=== PATIENT | female | born 1980 | race Caucasian/White ===

== ENCOUNTER 2016-10-10 14:04 | Emergency (ER) | payer MEDICAID, OTHER ==
[~2016-10-10] VITALS: Ht 167.6 cm; Wt 80.0 kg
[~2016-10-10 14:04] MED LIST: ALPR0.25 PO; FIORIC PO; IBUP-232 PO; MEGE40SU PO
[2016-10-10 14:14] VITALS: BP 107/57; PULSE 99; RESP 16; TEMP 99.3; O2SAT 99
[2016-10-10] MEDS ORDERED: AMOX500T PO (15:19)
--- NOTE | 2016-10-10 15:19 | PD ---
HPI Chief Complaint: ENT Complaint Time Seen by Provider: 15:00 Travel History International Travel<30 days: No Contact w/Intl Traveler<30days: No Traveled to known affect area: No History of Present Illness HPI 36-year-old female presents emergency department for evaluation of right ear pain times one day. Patient denies fever or chills, headache, neck pain. She reports the pain is constant, nonradiating. No aggravating or alleviating factors. Pain scale 5/10. PFSH Past Medical History Anxiety: Yes Depression: Yes Insomnia: Yes Immunizations Current: Yes Migraines: Yes Influenza Vaccination: No ?: Not : 4 Para: 4 Tubal Ligation: Yes (03/31/08) Past Surgical History Section: Yes (3 ) Gynecologic Surgery: Yes (bilateral tubal ligation 03/31/2008) Hysterectomy: No (STATES NEEDS ONE FOR ABNORMAL BLEEDING-TAKING MEGESTROL) Other Surgery: Yes (HERNIA REPAIR/LAPAROSCOPY) Social History Alcohol Use: Yes (couple times per month) Tobacco Use: Yes (1/2 ppd) Substance Use: No Allergies-Medications (Allergen,Severity, Reaction): Uncoded Allergies: UNKNOWN ANTIBIOTIC (Allergy, Severe, NAUSEA/VOMITING., 01/06/15) UNKNOWN "ANTIBIOTIC FOR A YEAST INFECTION" Reported Meds & Prescriptions Reported Meds & Active Scripts Active No Active Prescriptions or Reported Medications Review of Systems Except as stated in HPI: all other systems reviewed are Neg General / Constitutional: No: Fever Physical Exam Narrative GENERAL: Alert, well-appearing female no acute distress. Patient sleeping on stretcher. SKIN: Focused skin assessment warm/dry. HEAD: Atraumatic. Normocephalic. EYES: Pupils equal and round. No scleral icterus. No injection or drainage. ENT: No nasal bleeding or discharge. Mucous membranes pink and moist. Right TM erythema. No canal swelling or exudate. No mastoid tenderness. NECK: Trachea midline. No JVD. CARDIOVASCULAR: Regular rate and rhythm. No murmur appreciated. RESPIRATORY: No accessory muscle use. Clear to auscultation. Breath sounds equal bilaterally. GASTROINTESTINAL: Abdomen soft, non-tender, nondistended. Hepatic and splenic margins not palpable. MUSCULOSKELETAL: No obvious deformities. No clubbing. No cyanosis. No edema. NEUROLOGICAL: Awake and alert. No obvious cranial nerve deficits. Motor grossly within normal limits. Normal speech. Data Data Last Documented VS Vital Signs Date Time Temp Pulse Resp B/P Pulse Ox O2 Delivery O2 Flow Rate FiO2 10/10/16 14:14 99.3 99 16 107/57 99 MDM Medical Decision Making Medical Screen Exam Complete: Yes Emergency Medical Condition: Yes Differential Diagnosis Otitis media, otitis externa, URI Narrative Course 36-year-old female chief complaint of right ear pain times one day. Patient denies fever or chills. On exam she has right TM erythema with loss of landmarks. No perforation. No canal swelling or exudate. No mastoid tenderness. Patient be treated for AOM with amoxicillin. Diagnosis Primary Impression: Otitis media Qualified Code: H66.91 - Right otitis media, unspecified chronicity, unspecified otitis media type Referrals: Primary Care Physician Additional Instructions: Take the antibiotics as prescribed. Take [id number] Motrin 235666 milligrams by mouth every 6-8 hours as needed for pain. Follow-up with her primary care doctor. Return to emergency department if he developed new or worsening symptoms. Scripts Amoxicillin 500 Mg Qpw280 Mg PO TID #30 TAB Prov:Osiris Hansen 10/10/16 Disposition: 01 DISCHARGE HOME Condition: Stable Osiris Hansen Oct 10, 2016 15:19
== END 2016-10-10 15:25 | disposition home or self-care (01) ==
LOC: PHEFT 14:04
DX: H66.91 Otitis media, unspecified, right ear (principal); F17.200 Nicotine dependence, unspecified, uncomplicated; Z86.59 Personal history of other mental and behavioral disorders; Z86.69 Personal history of other diseases of the nervous system and sense organs
CPT/HCPCS: 99283

== ENCOUNTER 2016-11-13 22:30 | Emergency (ER) | payer MEDICAID ==
[~2016-11-13] VITALS: Ht 165.1 cm; Wt 84.0 kg
[~2016-11-13 22:30] MED LIST changes: -ALPR0.25 PO; +AMOX500T PO; -FIORIC PO; -IBUP-232 PO; -MEGE40SU PO
[2016-11-13 22:32] VITALS: BP 133/82; PULSE 102; RESP 16; TEMP 98.1; O2SAT 99
--- NOTE | 2016-11-13 22:40 | PD ---
HPI Chief Complaint: Injury Time Seen by Provider: 22:37 Travel History International Travel<30 days: No Contact w/Intl Traveler<30days: No Traveled to known affect area: No History of Present Illness HPI 36-year-old female presents to the emergency department for evaluation of right elbow pain since 2:00 Linh when she struck her elbow on a piece of equipment at work. Patient states initially she did not think anything of it, but it continues to ache. It is constant, 6 out of 10 pain. Is not radiating anywhere. Denies the alterations in sensation. No limitations range of motion. She has not taken anything for this pain. She has no other symptoms to report. PFSH Past Medical History Anxiety: Yes Depression: Yes Insomnia: Yes Immunizations Current: Yes Migraines: Yes ?: Not LMP: 10/26/16 : 4 Para: 4 Tubal Ligation: Yes (03/31/08) Past Surgical History Section: Yes (3 ) Gynecologic Surgery: Yes (bilateral tubal ligation 03/31/2008) Other Surgery: Yes (HERNIA REPAIR/LAPAROSCOPY) Social History Alcohol Use: Yes (couple times per month) Tobacco Use: Yes (/2 ppd) Substance Use: No Allergies-Medications (Allergen,Severity, Reaction): Uncoded Allergies: UNKNOWN ANTIBIOTIC (Allergy, Severe, NAUSEA/VOMITING., 01/06/15) UNKNOWN "ANTIBIOTIC FOR A YEAST INFECTION" Reported Meds & Prescriptions Reported Meds & Active Scripts Active No Active Prescriptions or Reported Medications Review of Systems Except as stated in HPI: all other systems reviewed are Neg Physical Exam Narrative GENERAL: Well-nourished female patient, ambulatory acute distress. SKIN: Focused skin assessment warm/dry. Ecchymosis, rashes, or lesions. HEAD: Atraumatic. Normocephalic. EYES: Pupils equal and round. No scleral icterus. No injection or drainage. ENT: No nasal bleeding or discharge. Mucous membranes pink and moist. NECK: Trachea midline. No JVD. CARDIOVASCULAR: Regular rate and rhythm. No murmur appreciated. RESPIRATORY: No accessory muscle use. Clear to auscultation. Breath sounds equal bilaterally. MUSCULOSKELETAL: No obvious deformities. No clubbing. No cyanosis. No edema. Patient is full flexion, extension, supination, pronation of the right elbow and forearm. No deformity. Tenderness was to palpation over the medial aspect of the right elbow. Distal pulses are palpable. Cap refill is within normal limits. NEUROLOGICAL: Awake and alert. No obvious cranial nerve deficits. Motor grossly within normal limits. Normal speech. Data Data Last Documented VS Vital Signs Date Time Temp Pulse Resp B/P (MAP) Pulse Ox O2 Delivery O2 Flow Rate FiO2 11/13/16 23:10 11/13/16 22:42 16 98 Room Air 11/13/16 22:32 98.1 102 Orders Orders Elbow, Complete (4 Vws) (11/13/16 ) [facility] Medical Decision Making Medical Screen Exam Complete: Yes Emergency Medical Condition: Yes Medical Record Reviewed: Yes Differential Diagnosis Contusion versus fracture versus sprain versus dislocation Narrative Course 36 year-old female presents to emergency department for evaluation right elbow pain. Patient appears without distress. There is no limitation in range of motion. Alterations in sensation. No deformity. X-ray imaging reveals no acute bony normality. Patient is counseled on care. She is encouraged to follow-up with primary care provider. She agrees to return immediately with any acute worsening of symptoms. Diagnosis Primary Impression: Contusion of right elbow Qualified Codes: S50.01XA - Contusion of right elbow, initial encounter Referrals: Primary Care Physician Patient Instructions: Contusion in Adults (ED), General Instructions Additional Instructions: Ice to the affected area 20 minutes on/20 minutes off Tylenol or ibuprofen as directed on the package as needed for pain Follow-up with a primary care provider Return immediately with any acute worsening of symptoms Med/Other Pt SpecificInfo: No Change to Meds Scripts No Active Prescriptions or Reported Meds Disposition: 01 DISCHARGE HOME Condition: Stable Cinthya Anderson Nov 13, 2016 22:40
--- NOTE | 2016-11-13 22:58 | RADRPT ---
EXAM DATE/TIME: 11/13/2016 22:49 [facility] COMPARISON: No previous studies available for comparison. INDICATIONS : Right elbow pain; hit elbow today. MEDICAL HISTORY : None. SURGICAL HISTORY : None. ENCOUNTER: Initial ACUITY: 1 day PAIN SCORE: 6/10 LOCATION: Right medial elbow. FINDINGS: Multiple view examination of the right elbow demonstrates no soft tissue swelling, joint effusion, or fracture. The osseous structures are in normal alignment. Bony mineralization is normal. CONCLUSION: Normal radiographic appearance of the right elbow. No fracture, subluxation or joint effusion demonst rated. Steven Christensen MD on November 13, 2016 at 22:57 Board Certified Radiologist. This report was verified electronically.
== END 2016-11-13 23:19 | disposition home or self-care (01) ==
LOC: NEPK 22:30
DX: S50.01XA Contusion of right elbow, initial encounter (principal); F41.9 Anxiety disorder, unspecified; F17.200 Nicotine dependence, unspecified, uncomplicated; W22.8XXA Striking against or struck by other objects, initial encounter; Y99.0 Civilian activity done for income or pay
CPT/HCPCS: 73080; 99283

== ENCOUNTER 2017-02-09 12:39 | Emergency (ER) | payer MEDICAID ==
[~2017-02-09] VITALS: Ht 167.6 cm; Wt 79.4 kg
[2017-02-09 12:44] VITALS: BP 111/57; PULSE 90; RESP 18; TEMP 99.1; O2SAT 97
[2017-02-09] MEDS ORDERED: IBUP1TAB7 PO (16:16)
[2017-02-09] MEDS ORDERED: OSEL75 PO (16:16)
== END 2017-02-09 14:53 | disposition left against medical advice (07) ==
LOC: PHED 12:39
DX: Z53.21 Procedure and treatment not carried out due to patient leaving prior to being seen by health care provider (principal)
CPT/HCPCS: 99281

== ENCOUNTER 2017-02-09 14:50 | Emergency (ER) | payer MEDICAID ==
[~2017-02-09] VITALS: Ht 167.6 cm; Wt 79.5 kg
[2017-02-09 14:51] VITALS: BP 127/79; PULSE 103; RESP 16; TEMP 100.4; O2SAT 97
[2017-02-09] MEDS ORDERED: IBUP1TAB7 PO (16:16)
[2017-02-09] MEDS ORDERED: OSEL75 PO (16:16)
--- NOTE | 2017-02-09 16:17 | PD ---
HPI Chief Complaint: Cold / Flu Symptoms Time Seen by Provider: 16:08 Travel History International Travel<30 days: No Contact w/Intl Traveler<30days: No Traveled to known affect area: No History of Present Illness HPI 36 -year-old female with flulike symptoms times one day. She is reporting fever , bodyaches, sore throat, cough. She denies foreign travel or sick contacts. The symptoms are similar to when she had the flu previously several years prior. No aggravating or alleviating factors. PFSH Past Medical History Anxiety: Yes Depression: Yes Insomnia: Yes Immunizations Current: Yes Migraines: Yes Tetanus Vaccination: Unknown ?: Not LMP: on now : 4 Para: 4 Tubal Ligation: Yes (03/31/08) Past Surgical History Section: Yes (3 ) Gynecologic Surgery: Yes (bilateral tubal ligation 03/31/2008) Other Surgery: Yes (HERNIA REPAIR/LAPAROSCOPY) Social History Alcohol Use: Yes (couple times per month) Tobacco Use: Yes (/2 ppd) Substance Use: No Allergies-Medications (Allergen,Severity, Reaction): Uncoded Allergies: UNKNOWN ANTIBIOTIC (Allergy, Severe, NAUSEA/VOMITING., 01/06/15) UNKNOWN "ANTIBIOTIC FOR A YEAST INFECTION" Reported Meds & Prescriptions Reported Meds & Active Scripts Active No Active Prescriptions or Reported Medications Review of Systems Except as stated in HPI: all other systems reviewed are Neg General / Constitutional: Positive: Fever HENT: Positive: Sore Throat, Congestion Respiratory: Positive: Cough Physical Exam Narrative GENERAL: Alert female in no distress. SKIN: Warm and dry. No rashes HEAD: Normocephalic. EYES: Pupils are equal and round. No scleral icterus. No injection or drainage. NECK: Supple, trachea midline. No JVD or lymphadenopathy. No meningismus. CARDIOVASCULAR: Regular rate and rhythm without murmurs, gallops, or rubs. RESPIRATORY: Breath sounds equal bilaterally. No accessory muscle use. GASTROINTESTINAL: Abdomen soft, non-tender, nondistended. MUSCULOSKELETAL: No cyanosis, or edema. BACK: Nontender without obvious deformity. No CVA tenderness. Data Data Last Documented VS Vital Signs Date Time Temp Pulse Resp B/P (MAP) Pulse Ox O2 Delivery O2 Flow Rate FiO2 02/09/17 14:51 100.4 103 16 127/79 (95) 97 Orders Orders Influenzae A/B Antigen (02/09/17 16:09) [facility] Medical Decision Making Medical Screen Exam Complete: Yes Emergency Medical Condition: Yes Differential Diagnosis Influenza, viral illness, URI, pneumonia, bronchitis Narrative Course 36-year-old female with flulike symptoms times one day. Patient is requesting Tamiflu. She is nontoxic appearing. She is a low-grade fever and mild tachycardia. On exam She appears well-hydrated. Her lungs are clear. She'll be treated for presumptive flu Diagnosis Primary Impression: Influenza Referrals: [facility] Scripts Ibuprofen (Ibuprofen) 800 Mg Tab 800 MG PO Q6HR Y for PAIN, #40 TAB 0 Refills Prov: Osiris Hansen 02/09/17 Oseltamivir (Tamiflu) 75 Mg Cap 75 MG PO BID for Mgmt Viral Infection for 5 Days, #10 CAP 0 Refills Prov: Osiris Hansen 02/09/17 Disposition: 01 DISCHARGE HOME Condition: Stable Osiris Hansen Feb 09, 2017 16:17
== END 2017-02-09 16:28 | disposition home or self-care (01) ==
LOC: NEPK 14:50
DX: J11.1 Influenza due to unidentified influenza virus with other respiratory manifestations (principal); F17.200 Nicotine dependence, unspecified, uncomplicated
CPT/HCPCS: 99283

== ENCOUNTER 2017-07-16 18:52 | Emergency (ER) | payer SELFPAY ==
[~2017-07-16] VITALS: Ht 167.6 cm; Wt 80.0 kg
[~2017-07-16 18:52] MED LIST changes: -AMOX500T PO; +IBUP1TAB7 PO; +OSEL75 PO
[2017-07-16 19:28] VITALS: BP 107/63; PULSE 74; RESP 16; TEMP 98.9; O2SAT 98
== END 2017-07-16 20:25 | disposition left against medical advice (07) ==
LOC: NED 18:52
DX: G43.909 Migraine, unspecified, not intractable, without status migrainosus (principal)
CPT/HCPCS: 99281